=== PATIENT | male | born 1985 | race Caucasian/White ===

== ENCOUNTER 2024-06-11 16:23 | Emergency (ER) | payer SELFPAY ==
[2024-06-11 18:01] LABS: Absolute Lymphocytes (CBC) 1.5 K/uL (0.7-4.9); Absolute Monocytes 1.3 K/uL (0.1-1.3); Basophils % 0.3 % (0-1.3); Hematocrit 45.8 % (39.6-49.0); Hemoglobin 15.5 g/dL (13.6-17.9); Lymphocytes % 11.6 % (15.3-44.8); MCH 30.1 pg (27.0-35.0); MCHC 33.8 g/dL (32.0-36.0); MPV 8.8 fL (7.6-11.3); Monocytes % 10.2 % (3.3-12.3); Neutrophils % 77.9 % (41.7-73.7); Platelets 369 thou/uL (152-406); RBC Red Blood Cell Count 5.14 M/uL (4.33-5.43); Red Cell Distribution Width 13.6 % (12.1-15.2)
[2024-06-11 18:20] LABS: Albumin 5.1 g/dL (3.4-5.0); Albumin/Globulin Ratio 1.3 (1.1-1.8); Bilirubin Total 1.4 mg/dL (0.2-1.0); Protein, Total 9.1 g/dL (6.4-8.2)
--- NOTE | 2024-06-11 18:58 | ER ---
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 Pt cm10 states, " I think I am dehydrated". Pt reports smoking meth 2 days ago. Coronavirus screen: Client denies travel out of the [place] in the last 14 days. At this time, the client does not indicate any symptoms associated with coronavirus-19. Ebola Screen: Patient denies travel to an Ebola-affected area in the 21 days before illness onset. No symptoms or risks identified at this time. Initial Sepsis Screen: Does the patient meet any 2 criteria? No. Patient's initial sepsis screen is negative. Does the patient have a suspected source of infection? No. Patient's initial sepsis screen is negative. Risk Assessment: Do you want to hurt yourself or someone else? Patient reports no desire to harm self or others. Onset of symptoms was June 11, 2024. 16:59 Method Of Arrival: Wheelchair cm10 16:59 Acuity: RONNY 3 cm10 Triage Assessment: 17:01 General: Appears in no apparent distress. comfortable, Behavior is cooperative. Neuro: cm10 No deficits noted. Level of Consciousness is awake, alert, obeys commands, Oriented to person, place, time, situation, Appropriate for age. Historical: - Allergies: 17:01 Benadryl; cm10 - PMHx: 17:01 None; cm10 - Immunization history:: Adult Immunizations up to date. - Infectious Disease History:: Denies. - Social history:: Smoking status: Reported history of juuling and/or vaping. Patient uses street drugs, Methamphetamine (Meth). Screenin:[facility] ED Fall Risk Assessment (Adult) History of falling in the last 3 months, cm10 including since admission No falls in past 3 months (0 pts) Confusion or Disorientation No (0 pts) Intoxicated or Sedated No (0 pts) Impaired Gait No (0 pts) Mobility Assist Device Used No (0 pt) Altered Elimination No (0 pt) Score/Fall Risk Level 0 - 2 = Low Risk Oriented to surroundings, Maintained a safe environment, Hourly rounding (assess needs \\T\\ fall precautionary measures) done. Abuse screen: Denies threats or abuse. Denies injuries from another. Nutritional screening: No deficits noted. Tuberculosis screening: No symptoms or risk factors identified. Assessment: 18:57 General: Pt states that he wants his IV taken out and would like to leave. Pt's IV cm10 taken out and provider made aware.. Vital Signs: 16:59 BP 123 / 80; Pulse 87; Resp 16; Temp 96.7; Pulse Ox 98% on R/A; Weight 63.5 kg; Height cm10 5 ft. 8 in. ; Pain 10/10; 16:59 Body Mass Index 21.29 (63.50 kg, 172.72 cm) cm10 16:59 Pain Scale: Adult cm10 ED Course: 16:25 Patient arrived in ED. mg5 16:27 [facility] Re[facility]C [facility]. kb 16:27 Eliezer Jang MD is Attending Physician. kb 17:01 Triage completed. cm10 17:02 Arm band placed on Patient placed in waiting room. cm10 17:50 Initial lab(s) drawn, by me, sent to lab. Inserted saline lock: 20 gauge in left ap3 antecubital area, using aseptic technique. Blood collected. 17:50 CBC with Diff Sent. ap3 17:50 CMP Sent. ap3 17:50 Lipase Sent. ap3 18:57 Patient has correct armband on for positive identification. Provided Education on: cm10 follow-up instructions. 18:57 IV discontinued, intact, bleeding controlled, No redness/swelling at site. Pressure cm10 dressing applied. 18:58 No provider procedures requiring assistance completed. cm10 Administered Medications: 18:59 Not Given (Pt leftt): ns 0.9% 1000 ml IV at 1 bolus Per protocol; 1000 mL bolus cm10 18:59 Not Given (Pt leftt): [id number] mg IVP once; dilute with 10 mL 0.9% NaCl; give over cm10 2 minutes 18:59 Not Given (Pt leftt): ondansetron 4 mg IVP once; over 2 minutes cm10 18:59 Not Given (Pt leftt): potassium [id number] meq PO once cm10 Medication: 18:57 VIS not applicable for this client. cm10 Outcome: 18:57 Discharge ordered by MD. johnson 18:58 Discharged to home ambulatory, cm10 18:58 Condition: good 18:58 Discharge instructions given to Pt left prior to receiving D/C paperwork. Pt leaving A\\T\\Ox4, ambulatory with steady gait. 18:59 Patient left the ED. 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 cm10 Pt states, " I think I am dehydrated". cm10
--- NOTE | 2024-06-11 18:58 | EDPHYS ---
Physician Documentation [facility] Name: Bentley Worthington Age: 39 yrs Sex: Male : 1985 Arrival Date: 06/11/2024 Time: 16:23 Bed IW2 Private MD: ED Physician Eliezer Jang HPI: 06/11 19:16 This 39 yrs old Male presents to ER via Wheelchair with complaints of Weakness, kb Vomiting. 19:16 Pt is a 39 year old male who presents for dehydration. States this has happened kb multiple times in the past and it feels exactly the same. Reports nausea, vomiting and weakness. States he smoked meth 2 days ago and hasn't slept since then so he thinks that is part of the cause. Historical: - Allergies: 17:01 Benadryl; cm10 - PMHx: 17:01 None; cm10 - Immunization history:: Adult Immunizations up to date. - Infectious Disease History:: Denies. - Social history:: Smoking status: Reported history of juuling and/or vaping. Patient uses street drugs, Methamphetamine (Meth). ROS: 19:11 Constitutional: As per HPI kb Exam: 19:11 Constitutional: This is a well developed, well nourished patient who is awake, alert, kb and in no acute distress. Head/Face: Normocephalic, atraumatic. ENT: Moist Mucous membranes Cardiovascular: Regular rate Respiratory: Respirations even and unlabored. No increased work of breathing. Talking in full sentences Abdomen/GI: Soft, non-tender. No distention Skin: Warm, dry with normal turgor. Normal color. MS/ Extremity: Pulses equal, no cyanosis. Neurovascular intact. Full, normal range of motion. Neuro: Awake and alert, GCS 15, oriented to person, place, time, and situation. Moves all extremities. Normal gait. Vital Signs: 16:59 BP 123 / 80; Pulse 87; Resp 16; Temp 96.7; Pulse Ox 98% on R/A; Weight 63.5 kg; Height cm10 5 ft. 8 in. ; Pain 10/10; 16:59 Body Mass Index 21.29 (63.50 kg, 172.72 cm) cm10 16:59 Pain Scale: Adult cm10 MDM: 16:27 Patient medically screened. kb 19:11 Data reviewed: vital signs, nurses notes. kb 19:15 ED course: Pt elected to leave from lobby prior to IVF or medications. . kb 21:18 Differential diagnosis: viral gastroenteritis, abnormal electrolytes, dehydration, drug kb abuse. Test considered but Not performed: CT: ct abd considered but pt has no abd tenderness. 06/11 16:59 Order name: CBC with Diff; Complete Time: 18:03 kb 06/11 16:59 Order name: CMP; Complete Time: 18:26 kb 06/11 16:59 Order name: Lipase; Complete Time: 18:26 kb 06/11 16:59 Order name: IV Saline Lock; Complete Time: 17:50 kb 06/11 16:59 Order name: Labs collected and sent; Complete Time: 17:50 kb Administered Medications: 18:59 Not Given (Pt leftt): ns 0.9% 1000 ml IV at 1 bolus Per protocol; 1000 mL bolus cm10 18:59 Not Given (Pt leftt): [id number] mg IVP once; dilute with 10 mL 0.9% NaCl; give over cm10 2 minutes 18:59 Not Given (Pt leftt): ondansetron 4 mg IVP once; over 2 minutes cm10 18:59 Not Given (Pt leftt): potassium [id number] meq PO once cm10 Disposition Summary: 06/11/24 18:57 Discharge Ordered Notes: Location: Home kb Condition: Stable kb Diagnosis - Nausea with vomiting, unspecified kb Followup: kb - With: Emergency Department - When: As needed - Reason: Worsening of condition Followup: kb - With: Private Physician - When: 2 - 3 days - Reason: Recheck today's complaints, Continuance of care, Re-evaluation by your physician Discharge Instructions: - Discharge Summary Sheet kb - Nausea and Vomiting, Adult, [id number] kb Forms: - Medication Reconciliation Form kb - Antibiotic Education kb - Prescription Opioid Use kb - Patient Portal Instructions kb - Leadership Thank You Letter kb Signatures: Dispatcher [employer] Nida Adorno, DIESEL MACHINIST-C DIESEL MACHINIST-Simran Landon, RN RN cm10 Corrections: (The following items were deleted from the chart) 16:59 16:59 CBC+H.LAB.BRZ ordered. EDMS EDMS 16:59 16:59 COMPREHENSIVE METABOLIC PANEL+C.LAB.BRZ ordered. EDMS EDMS 16:59 16:59 LIPASE+C.LAB.BRZ ordered. EDMS EDMS 18:59 18:26 Fluid Challenge ordered. kb cm10
[2024-06-11 19:14] VITALS: BP 123/80; TEMP 96.7; O2SAT 98
== END 2024-06-11 18:59 | disposition home or self-care (01) ==
LOC: ER 16:23
DX: R11.2 Nausea with vomiting, unspecified (principal)
CPT/HCPCS: 36415; 80053; 83690; 85025